=== PATIENT | male | born 1980 | race Caucasian/White ===

== ENCOUNTER 2017-03-09 22:20 | Emergency (ER) | payer SELFPAY ==
[~2017-03-09] VITALS: Ht 177.8 cm; Wt 92.2 kg
[2017-03-10] MEDS ORDERED: FAMOTIDINE 20 MG TABLET ONE (00:26)
[2017-03-10] MEDS ORDERED: DIPHENHYDRAMINE 25 MG CAPSULE ONE (00:26)
[2017-03-10] MEDS ORDERED: FAMOTIDINE 20 MG TABLET PO ONE (00:30)
[2017-03-10] MEDS ORDERED: DIPHENHYDRAMINE 25 MG CAPSULE PO ONE (00:30)
[2017-03-10 01:19] VITALS: BP 117/68
== END 2017-03-10 01:24 | disposition home or self-care (01) ==
LOC: ED 23:59
DX: T36.0X5A Adverse effect of penicillins, initial encounter (principal); Y92.9 Unspecified place or not applicable; G43.909 Migraine, unspecified, not intractable, without status migrainosus; F41.1 Generalized anxiety disorder; Z87.891 Personal history of nicotine dependence; Z88.2 Allergy status to sulfonamides
CPT/HCPCS: 99284; J7512; Q0163